=== PATIENT | male | born 1995 | race Caucasian/White ===

== ENCOUNTER 2023-06-24 07:27 | Emergency (ER) | payer MEDICAID ==
[~2023-06-24] VITALS: Ht 165.1 cm; Wt 74.4 kg
[2023-06-24 07:40] VITALS: BP 117/73; PULSE 95; RESP 20; TEMP 97.2; O2SAT 97
[2023-06-24] MEDS ORDERED: AMOX-1230 PO (07:49)
[2023-06-24] MEDS ORDERED: ACETAMINOPHEN 325 MG TAB PO ONE (07:55)
[2023-06-24] MEDS ORDERED: IBUPROFEN 400 MG TAB PO ONE (07:55)
[2023-06-24 08:00] VITALS: BP 117/53; PULSE 95; RESP 20; TEMP 98.2; O2SAT 98
== END 2023-06-24 07:54 | disposition home or self-care (01) ==
LOC: MED 07:27
DX: L02.212 Cutaneous abscess of back [any part, except buttock and flank] (principal); Z79.899 Other long term (current) drug therapy
CPT/HCPCS: 99283

== ENCOUNTER 2023-08-02 11:46 | Emergency (ER) | payer MEDICAID ==
[~2023-08-02] VITALS: Ht 165.1 cm; Wt 73.9 kg
[~2023-08-02 11:46] MED LIST: AMOX-1230 PO
[2023-08-02 11:48] VITALS: BP 137/83; PULSE 90; RESP 16; TEMP 98; O2SAT 97
[2023-08-02] MEDS ORDERED: IBUPROFEN 600 MG TAB PO ONE (12:25)
[2023-08-02] MEDS ORDERED: CEPH-588 PO (12:36)
[2023-08-02] MEDS ORDERED: BACI-418 TP (12:36)
[2023-08-02] MEDS ORDERED: IBUP-2213 PO (13:26)
[2023-08-02 13:54] VITALS: BP 137/83; PULSE 90; RESP 16; TEMP 98; O2SAT 97
== END 2023-08-02 13:54 | disposition home or self-care (01) ==
LOC: MED 11:46
DX: L03.113 Cellulitis of right upper limb (principal); Z79.899 Other long term (current) drug therapy
CPT/HCPCS: 73110; 99283